=== PATIENT | female | born 1980 | race Two or more races ===

== ENCOUNTER 2023-05-14 09:03 | Emergency (ER) | payer OTHER ==
[~2023-05-14] VITALS: Ht 160 cm; Wt 97.8 kg
[2023-05-14] MEDS ORDERED: PROM1SOL4 PO (09:37)
[2023-05-14] MEDS ORDERED: AMOX875T3 PO (09:37)
[2023-05-14 09:38] VITALS: BP 137/75; PULSE 95; RESP 16; TEMP 98.3; O2SAT 99
== END 2023-05-14 09:50 | disposition home or self-care (01) ==
LOC: ER 09:03
DX: H66.91 Otitis media, unspecified, right ear (principal); J06.9 Acute upper respiratory infection, unspecified; E11.9 Type 2 diabetes mellitus without complications; Z88.1 Allergy status to other antibiotic agents; Z88.6 Allergy status to analgesic agent